=== PATIENT | female | born 1935 | race Caucasian/White ===

== ENCOUNTER 2022-02-27 11:31 | Outpatient (CLI) | payer MEDICARE | END 2022-02-27 11:32 | disposition home or self-care (01) | LOC: SCSMRI 11:31 | PROVIDERS: ATTEND Family Medicine | DX: M47.27 Other spondylosis with radiculopathy, lumbosacral region (principal); M47.26 Other spondylosis with radiculopathy, lumbar region | CPT/HCPCS: 72148 ==